=== PATIENT | male | born 1950 | race Caucasian/White ===

== ENCOUNTER 2019-02-07 09:26 | Inpatient (IN) ==
[2019-02-07] MEDS ORDERED: ALBUTEROL 2.5 MG/3 ML NEB RESP TX STA (09:45)
[2019-02-07] MEDS ORDERED: ALBUTEROL/IPRATROPIUM 3 ML NEB RESP TX STA (09:45)
[2019-02-07] MEDS ORDERED: ASPIRIN 325 MG TABLET PO STA (09:45)
[2019-02-07] MEDS ORDERED: methylPREDNISolone SOD SUC 125 MG/2 ML VIAL IV STA (09:45)
[2019-02-07 10:19] LABS: ABG Base Excess -2.9 MMOL/L (-2.5-2.5); ABG HCO3 20.3 MMOL/L (20-26); ABG Oxygen Saturation 88.9 % (95-100); ABG PCO2 32.7 MM HG (35-48); ABG PO2 57.7 MM HG (80-95); ABG TCO2 21.3 MMOL/L (23-27); Allen Test Positive
[2019-02-07 10:26] LABS: Basophils # 0.1 10*3/uL (0.0-0.2); Basophils % 1.2 % (0.0-0.8); Eosinophils # 0.3 10*3/uL (0.0-0.87); Eosinophils % 2.3 % (0.00-10.9); Hemoglobin 19.9 GM/DL (14.0-18.0); Immature Granulocytes % 0.4 %; Immature Granulocytes Absolute 0.05 #; Lymphocytes # 3.5 10*3/uL (1.4-4.0); Lymphocytes % 29.2 % (21.2-54.2); Mean Corpuscular HGB Conc 32.5 GM/DL (32-36); Mean Corpuscular Volume 91.9 FL (87-102); Mean Platelet Volume 10.3 FL (9.6-12.0); Monocytes % 8.7 % (1.7-12.7); Neutrophils % 58.2 % (38.7-73.9); Platelet Count 300 T/CUMM (130-400); Red Blood Count 6.67 MC/CUMM (3.8-5.5); Red Cell Distribution Width 17.1 % (9.3-17.3); White Blood Count 11.9 T/CUMM (4-12)
[2019-02-07 10:33] LABS: INR 1.2; PT Patient Result 12.7 SECS (9.6-12.2)
[2019-02-07 10:38] LABS: Hematocrit 61.3 VOL% (42.0-52.0)
[2019-02-07 10:45] LABS: Alanine Aminotransferase 28 U/L (16-61); Albumin 3.1 G/DL (3.4-5.0); Alkaline Phosphatase 130 U/L (45-117); Aspartate Amino Transferase 29 U/L (0-37); Blood Urea Nitrogen 21 MG/DL (7-18); Calcium 8.8 MG/DL (8.5-10.1); Glucose 103 MG/DL (74-106); Osmolality,Calculated 279.5 MOS/KG (273-304); Total Protein 8.1 G/DL (6.4-8.3); Troponin I < 0.015 NG/ML (0.00-0.045)
[2019-02-07] MEDS ORDERED: ONDANSETRON 4 MG/2 ML VIAL IV PRN (12:11)
[2019-02-07] MEDS ORDERED: ACETAMINOPHEN 325 MG TABLET PO PRN (12:11)
[2019-02-07] MEDS ORDERED: LACTULOSE 20 GM/30 ML UDCUP PO PRN (12:11)
[2019-02-07] MEDS ORDERED: ALBUTEROL 2.5 MG/3 ML NEB RESP TX PRN (12:14)
[2019-02-07] MEDS ORDERED: NITROGLYCERIN SL 0.4 MG TABLET SL PRN (12:40)
[2019-02-07] MEDS: ALBUTEROL/IPRATROPIUM 3 ML NEB RESP TX SCH ×2 (13:00→20:09)
[2019-02-07 13:53] LABS: Risk Ratio 2.62; Thyroid Stimulating Hormone 5.21 uIU/ml (0.358-3.74)
[2019-02-07] MEDS: ENOXAPARIN 40 MG/0.4 ML SYRINGE SUBCUT SCH (16:59)
[2019-02-07] MEDS: methylPREDNISolone SOD SUC 40 MG/1 ML VIAL IV SCH (21:50)
[2019-02-07] MEDS: traMADol 50 MG TABLET PO PRN (21:53)
[2019-02-08] MEDS: ALBUTEROL/IPRATROPIUM 3 ML NEB RESP TX SCH ×4 (00:01→19:16)
[2019-02-08 01:41] LABS: Apearance,Urine CLEAR (Clear); Bilirubin,Urine Negative (Negative); Blood, Urine Negative (Negative); Glucose,Urine (UA) Negative (Negative); Hyaline Casts,Urine 1 /LPF (0-3); Ketones,Urine Negative (Negative); Mucus,Urine Occasional /LPF (Occasional); Nitrite,Urine Negative (Negative); Protein,Urine Negative; RBC,Urine 1 /HPF (0-4); Urine Color Yellow (Yellow); Urine Specific Gravity 1.031 (1.001-1.035); Urine Urobilinogen < 2.0 EU/DL (0.2-1.0); WBC,Urine <1 /HPF (0-6)
[2019-02-08 05:07] LABS: Basophils % 0.2 % (0.0-0.8); Hematocrit 57.3 VOL% (42.0-52.0); Hemoglobin 18.4 GM/DL (14.0-18.0); Immature Granulocytes % 0.5 %; Immature Granulocytes Absolute 0.08 #; Lymphocytes # 1.8 10*3/uL (1.4-4.0); Lymphocytes % 11.5 % (21.2-54.2); Mean Corpuscular HGB Conc 32.1 GM/DL (32-36); Mean Corpuscular Volume 91.2 FL (87-102); Mean Platelet Volume 10.4 FL (9.6-12.0); Monocytes % 3.2 % (1.7-12.7); Neutrophils % 84.6 % (38.7-73.9); Platelet Count 289 T/CUMM (130-400); Red Blood Count 6.28 MC/CUMM (3.8-5.5); Red Cell Distribution Width 16.2 % (9.3-17.3); White Blood Count 15.9 T/CUMM (4-12)
[2019-02-08 05:45] LABS: Calcium 8.8 MG/DL (8.5-10.1); Osmolality,Calculated 279.7 MOS/KG (273-304)
[2019-02-08] MEDS ORDERED: LISINOPRIL/HCTZ 10-12.5 MG TABLET PO SCH (09:00)
[2019-02-08] MEDS ORDERED: METOPROLOL SUCCINATE XL 25 MG TABLET PO SCH (09:00)
[2019-02-08] MEDS: PANTOPRAZOLE 40 MG TABLET PO SCH (09:14)
[2019-02-08] MEDS: MULTIVITAMIN (CENTRUM) TABLET PO SCH (09:14)
[2019-02-08] MEDS: SIMVASTATIN 20 MG TABLET PO SCH (09:14)
[2019-02-08] MEDS: ASPIRIN EC 81 MG TABLET PO SCH (09:14)
[2019-02-08] MEDS: MULTIVITAMIN (OCUVITE) TABLET PO SCH (09:14)
[2019-02-08] MEDS: traMADol 50 MG TABLET PO PRN ×2 (09:16→21:49)
[2019-02-08] MEDS: methylPREDNISolone SOD SUC 40 MG/1 ML VIAL IV SCH (12:07)
[2019-02-08] MEDS: ENOXAPARIN 40 MG/0.4 ML SYRINGE SUBCUT SCH (15:37)
[2019-02-08] MEDS: SODIUM CHLORIDE 0.9% 1,000 ML IV SCH (15:38)
[2019-02-09] MEDS: ALBUTEROL/IPRATROPIUM 3 ML NEB RESP TX SCH ×4 (00:18→19:54)
[2019-02-09 06:00] LABS: Basophils # 0.1 10*3/uL (0.0-0.2); Basophils % 0.7 % (0.0-0.8); Eosinophils # 0.2 10*3/uL (0.0-0.87); Eosinophils % 1.5 % (0.00-10.9); Hematocrit 55.7 VOL% (42.0-52.0); Hemoglobin 17.9 GM/DL (14.0-18.0); Immature Granulocytes % 0.5 %; Immature Granulocytes Absolute 0.06 #; Lymphocytes # 4.3 10*3/uL (1.4-4.0); Lymphocytes % 33.2 % (21.2-54.2); Mean Corpuscular HGB Conc 32.1 GM/DL (32-36); Mean Corpuscular Volume 92.4 FL (87-102); Mean Platelet Volume 11.4 FL (9.6-12.0); Monocytes % 9.2 % (1.7-12.7); Neutrophils % 54.9 % (38.7-73.9); Platelet Count 276 T/CUMM (130-400); Red Blood Count 6.03 MC/CUMM (3.8-5.5); Red Cell Distribution Width 16.4 % (9.3-17.3)
[2019-02-09 06:04] LABS: Calcium 8.4 MG/DL (8.5-10.1); Osmolality,Calculated 282.3 MOS/KG (273-304)
[2019-02-09] MEDS: ASPIRIN EC 81 MG TABLET PO SCH (09:06)
[2019-02-09] MEDS: MULTIVITAMIN (OCUVITE) TABLET PO SCH (09:06)
[2019-02-09] MEDS: MULTIVITAMIN (CENTRUM) TABLET PO SCH (09:06)
[2019-02-09] MEDS: SIMVASTATIN 20 MG TABLET PO SCH (09:07)
[2019-02-09] MEDS: PANTOPRAZOLE 40 MG TABLET PO SCH (09:07)
[2019-02-09] MEDS: predniSONE 20 MG TABLET PO SCH (09:07)
[2019-02-09] MEDS: traMADol 50 MG TABLET PO PRN ×2 (09:12→21:16)
[2019-02-09] MEDS: ENOXAPARIN 40 MG/0.4 ML SYRINGE SUBCUT SCH (13:24)
[2019-02-09] MEDS: SODIUM CHLORIDE 0.9% 1,000 ML IV SCH (19:55)
[2019-02-09] MEDS: BUDESONIDE/FORMOTEROL 160-4.5 INHALER 6 GM INH SCH (21:18)
[2019-02-10] MEDS: ALBUTEROL/IPRATROPIUM 3 ML NEB RESP TX SCH ×2 (00:10→07:30)
[2019-02-10 07:33] VITALS: BP 97/62
[2019-02-10] MEDS: BUDESONIDE/FORMOTEROL 160-4.5 INHALER 6 GM INH SCH (08:37)
[2019-02-10] MEDS: MULTIVITAMIN (CENTRUM) TABLET PO SCH (08:37)
[2019-02-10] MEDS: ASPIRIN EC 81 MG TABLET PO SCH (08:38)
[2019-02-10] MEDS: SIMVASTATIN 20 MG TABLET PO SCH (08:38)
[2019-02-10] MEDS: predniSONE 20 MG TABLET PO SCH (08:38)
[2019-02-10] MEDS: MULTIVITAMIN (OCUVITE) TABLET PO SCH (08:38)
[2019-02-10] MEDS: PANTOPRAZOLE 40 MG TABLET PO SCH (08:38)
== END 2019-02-10 10:35 | disposition home or self-care (01) | DRG 190 ==
LOC: N.EDINP 09:26 → N.ED 09:26 → N.EDINP 13:30 → N.4E 13:42
PROVIDERS: ADMIT Internal Medicine; ATTEND Internal Medicine